=== PATIENT | female | born 1955 | race Caucasian/White ===

== ENCOUNTER 2016-12-02 17:32 | Emergency (ER) | payer BC, OTHER ==
[2016-12-02] MEDS ORDERED: Nitrostat 0.4 MG (ED) SL ONE ×2 (17:44→17:56)
[2016-12-02] MEDS ORDERED: Zofran 4 MG/2 ML VIAL IV ONE (17:44)
[2016-12-02] MEDS ORDERED: BABY ASPIRIN 81 MG CHEW PO ONE (17:44)
--- NOTE | 2016-12-02 17:44 | ERPHSYRPT ---
- History of Present Illness Historian: patient, family () Exam Limitations: clinical condition Physician History: Patient took [id number] Azo for which he thought was urinary tract symptoms and possible infection and developed acute swelling of her tongue and chest pain with nausea and vomiting brought to ER at this time for such. Patient had previous history of allergic reaction to Pyridium but did not know if this was the same medicine which it turned out to be. No fever or chills. Has urinary frequency urgency and mild dysuria. No flank pain. No history of cardiac disease in the past.chest pain has resolved at this time. Timing/Duration: today Activities at Onset: other ( NOTED ABOVE) Quality: burning, cramping Location: substernal, other (to upper epigastric) Chest Pain Radiation: no radiation Severity of Pain-Max: severe Severity of Pain-Current: none Modifying Factors: Improves With: nothing Associated Symptoms: nausea, vomiting Prior Chest Pain/Cardiac Workup: no prior chest pain, no prior cardiac workup Nitro Today/Relief: no nitro taken today Aspirin Treatment Today: 81 mg x 4, provided by ED Allergies/Adverse Reactions: phenazopyridine Allergy (Intermediate, Verified 12/02/16 18:14) Sulfa (Sulfonamide Antibiotics) Allergy (Verified 12/02/16 18:14) - Review of Systems Constitutional: No Symptoms Eyes: No Symptoms Ears, Nose, & Throat: Other (tongue swelling/thickening as noted) Respiratory: No Symptoms Cardiac: No Symptoms Abdominal/Gastrointestinal: Nausea, Vomiting, Other (substernal esophageal pain to upper epigastric area) Genitourinary Symptoms: Frequency, Hesitancy, Urgency, No Incontinence Musculoskeletal: No Symptoms Skin: No Symptoms Neurological: No Symptoms Psychological: No Symptoms Endocrine: No Symptoms Hematologic/Lymphatic: No Symptoms Immunological/Allergic: No Symptoms All Other Systems: Reviewed and Negative - Past Medical History Pertinent Past Medical History: Yes Neurological History: No Pertinent History ENT History: No Pertinent History Cardiac History: No Pertinent History Respiratory History: No Pertinent History Endocrine Medical History: No Pertinent History Musculoskeletal History: No Pertinent History GI Medical History: No Pertinent History History: No Pertinent History Psycho-Social History: No Pertinent History Female Reproductive Disorders: No Pertinent History - Physical Exam General Appearance: severe distress, alert, anxiety Eye Exam: PERRL/EOMI Ears, Nose, Throat Exam: normal ENT inspection, TMs normal, pharynx normal, other (Very mild initial tongue swelling which resolved after menstruation medications.) Neck Exam: normal inspection Respiratory Exam: normal breath sounds, lungs clear, airway intact, No chest tenderness, No respiratory distress, No diminished breath sounds, No prolonged expirations Cardiovascular Exam: regular rate/rhythm, normal heart sounds, normal peripheral pulses Gastrointestinal/Abdomen Exam: soft, normal bowel sounds, tenderness (mild suprapubic), No distention, No mass, No guarding, No rebound, No hernia Pelvic Exam: not done Rectal Exam: deferred Back Exam: normal inspection, normal range of motion, No CVA tenderness, No vertebral tenderness, No decreased range of motion, No muscle spasm, No point tenderness Extremity Exam: normal inspection, normal range of motion Neurologic Exam: alert, oriented x 3, cooperative, package sealer II-XII nml as tested Skin Exam: normal color, warm, dry Lymphatic Exam: No adenopathy SpO2 Interpretation: normal SpO2: 96 Oxygen Delivery: Room Air - Course Nursing assessment & vital signs reviewed: Yes EKG Interpreted by Me: RATE (98), Sinus Rhythm, Left Hewitt Deviation, NORMAL INTERVALS, NORMAL QRS, Non-specific ST Changes (III,aVL,V1), Other (NO SIGNIFICANT CHANGES TO OLD ekg comparison on august 22, 2013) - Radiology Exams Chest X-ray Interpretation: Interpreted by me, Negative Ordered Tests: Medication Summary Discontinued Medications Generic Name Dose Route Start Last Admin Trade Name Marvin PRN Reason Stop Dose Admin Aspirin 324 mg 12/02/16 17:44 12/02/16 18:01 Baby Aspirin 81 Mg Chew PO 12/02/16 17:45 324 mg STAT ONE Administration Aspirin Confirm 12/02/16 17:55 Baby Aspirin 81 Mg Chew Administered 12/02/16 17:56 Dose 324 mg .ROUTE .STK-MED ONE Dexamethasone Sodium Phosphate 10 mg 12/02/16 18:14 12/02/16 18:25 Decadron 10mg Inj. IV 12/02/16 18:15 10 mg STAT ONE Administration Dexamethasone Sodium Phosphate Confirm 12/02/16 18:20 Decadron 10mg Inj. Administered 12/02/16 18:21 Dose 10 mg .ROUTE .STK-MED ONE Diphenhydramine HCl 25 mg 12/02/16 18:14 12/02/16 18:25 Benadryl 50 Mg/Ml IV 12/02/16 18:15 25 mg STAT ONE Administration Diphenhydramine HCl Confirm 12/02/16 18:20 Benadryl 50 Mg/Ml Administered 12/02/16 18:21 Dose 50 mg .ROUTE .STK-MED ONE Famotidine 20 mg 12/02/16 18:15 12/02/16 18:25 Pepcid 20 Mg Vial IV 12/02/16 18:16 20 mg STAT ONE Administration Famotidine Confirm 12/02/16 18:20 Pepcid 20 Mg Vial Administered 12/02/16 18:21 Dose 20 mg IV .STK-MED ONE Sodium Chloride 1,000 mls @ 100 mls/hr 12/02/16 17:45 12/02/16 18:01 Sodium Chloride 0.9% 1000 Ml IV 01/01/17 17:44 100 mls/hr .Q10H FLIP Administration Sodium Chloride Confirm 12/02/16 17:56 Sodium Chloride 0.9% 1000 Ml Administered 12/02/16 17:57 Dose 1,000 mls @ ud .ROUTE .STK-MED ONE Ceftriaxone Sodium/Dextrose 50 mls @ 100 mls/hr 12/02/16 20:13 12/02/16 20:24 Rocephin 1 Gm-D5w 50 Ml Bag IV 12/02/16 20:42 100 mls/hr STAT ONE Administration Ceftriaxone Sodium/Dextrose Confirm 12/02/16 20:21 Rocephin 1 Gm-D5w 50 Ml Bag Administered 12/02/16 20:22 Dose 50 mls @ ud IV .STK-MED ONE Nitroglycerin 0.4 mg 12/02/16 17:44 12/02/16 18:01 Nitrostat 0.4 Mg (Ed) SL 12/02/16 17:45 0.4 mg STAT ONE Administration Nitroglycerin Confirm 12/02/16 17:56 Nitrostat 0.4 Mg (Ed) Administered 12/02/16 17:57 Dose 0.4 mg SL .STK-MED ONE Ondansetron HCl 4 mg 12/02/16 17:44 12/02/16 18:01 Zofran 4 Mg/2 Ml Vial IV 02/08/17 17:45 4 mg STAT ONE Administration Ondansetron HCl Confirm 12/02/16 17:55 Zofran 4 Mg/2 Ml Vial Administered 12/02/16 17:56 Dose 4 mg .ROUTE .STK-MED ONE Lab/Rad Data: Laboratory Result Diagrams 12/02/16 17:45 12/02/16 17:45 Laboratory Results 12/02/16 12/02/16 12/02/16 Range/Units 19:25 17:45 17:45 WBC (4.0-10.5) K/mm3 RBC (4.1-5.4) M/mm3 Hgb (12.0-16.0) gm/dl Hct (35-47) % MCV (78-100) fl MCH (26-32) pg MCHC (32-36) g/dl RDW (11.5-14.0) % Plt Count (150-450) K/mm3 MPV (6-9.5) fl Gran % (36.0-66.0) % Lymphocytes % (24.0-44.0) % Monocytes % (0.0-12.0) % Eosinophils % (0.00-5.0) % Basophils % (0.0-0.4) % Basophils # (0-0.4) Sodium 143 (136-145) mEq/L Potassium 3.7 (3.5-5.1) mEq/L Chloride 106 (98-107) mEq/L Carbon Dioxide 21.8 (21-32) mEq/L Anion Gap 19.1 H (5-15) MEQ/L BUN 16 (9-20) mg/dL Creatinine 0.96 (0.55-1.30) mg/dl Estimated GFR > 60 ML/MIN Glucose 134 H (70-110) MG/DL Calcium 9.1 (8.5-10.1) mg/dL Total Bilirubin 0.2 (0.2-1.0) mg/dL AST 28 (15-37) U/L ALT 28 (12-78) U/L Alkaline Phosphatase 87 (46-116) U/L Troponin I < 0.017 (0.000-0.056) ng/ml Serum Total Protein 7.6 (6.4-8.2) gm/dL Albumin 3.9 (3.4-5.0) g/dL Ur Collection Type CATH Urine Color RED (YELLOW) Urine Appearance SLIGHTLY CLOUDY (CLEAR) Urine pH 5.0 (5-6) Ur Specific [place] 1.015 (1.005-1.025) Urine Protein >=300 (Negative) Urine Glucose (UA) 250 (NEGATIVE) mg/dL Urine Ketones SMALL-15 (NEGATIVE) Urine Nitrite POSITIVE (NEGATIVE) Urine Bilirubin MODERATE (NEGATIVE) Urine Urobilinogen 4 (0-1) mg/dL Urine WBC (Auto) LARGE (NEGATIVE) Urine RBC (Auto) TRACE HEMOLYZED (0-5) Cas/ul Urine Microscopic RBC 0-2 (0-2) /HPF Urine Microscopic WBC 25-50 (0-5) /HPF Ur Epithelial Cells MODERATE (FEW) /HPF Urine Bacteria FEW (NEGATIVE) /HPF Urine Mucus MANY (NEGATIVE) /HPF Specimen Received 12/02/16:2150 12/02/16 Range/Units 17:45 WBC 8.2 (4.0-10.5) K/mm3 RBC 4.19 (4.1-5.4) M/mm3 Hgb 12.3 (12.0-16.0) gm/dl Hct 37.1 (35-47) % MCV 88.5 (78-100) fl MCH 29.4 (26-32) pg MCHC 33.2 (32-36) g/dl RDW 13.3 (11.5-14.0) % Plt Count 332 (150-450) K/mm3 MPV 9.5 (6-9.5) fl Gran % 34.5 L (36.0-66.0) % Lymphocytes % 54.6 H (24.0-44.0) % Monocytes % 8.6 (0.0-12.0) % Eosinophils % 1.8 (0.00-5.0) % Basophils % 0.5 (0.0-0.4) % Basophils # 0.04 (0-0.4) Sodium (136-145) mEq/L Potassium (3.5-5.1) mEq/L Chloride (98-107) mEq/L Carbon Dioxide (21-32) mEq/L Anion Gap (5-15) MEQ/L BUN (9-20) mg/dL Creatinine (0.55-1.30) mg/dl Estimated GFR ML/MIN Glucose (70-110) MG/DL Calcium (8.5-10.1) mg/dL Total Bilirubin (0.2-1.0) mg/dL AST (15-37) U/L ALT (12-78) U/L Alkaline Phosphatase (46-116) U/L Troponin I (0.000-0.056) ng/ml Serum Total Protein (6.4-8.2) gm/dL Albumin (3.4-5.0) g/dL Ur Collection Type Urine Color (YELLOW) Urine Appearance (CLEAR) Urine pH (5-6) Ur Specific [place] (1.005-1.025) Urine Protein (Negative) Urine Glucose (UA) (NEGATIVE) mg/dL Urine Ketones (NEGATIVE) Urine Nitrite (NEGATIVE) Urine Bilirubin (NEGATIVE) Urine Urobilinogen (0-1) mg/dL Urine WBC (Auto) (NEGATIVE) Urine RBC (Auto) (0-5) Cas/ul Urine Microscopic RBC (0-2) /HPF Urine Microscopic WBC (0-5) /HPF Ur Epithelial Cells (FEW) /HPF Urine Bacteria (NEGATIVE) /HPF Urine Mucus (NEGATIVE) /HPF Specimen Received - Progress Progress: improved Air Movement: good Progress Note: 12/02/16 20:23Patient markedly improved with regard to symptoms of allergic reaction to Pyridium. Urinalysis was significant findings of UTI sent for culture. Patient given 1 g Rocephin IV. See discharge diagnosis and instructions. Emphasized importance of follow-up and criteria for return to ER. Blood Culture(s) Obtained: No Antibiotics given: No Counseled pt/family regarding: lab results, diagnosis, rad results - Departure Time of Disposition: 20:35 Departure Disposition: Home Clinical Impression: Allergic reaction caused by a drug Qualifiers: Encounter type: initial encounter Qualified Code(s): T78.40XA - Allergy, unspecified, initial encounter UTI (urinary tract infection) Qualifiers: Urinary tract infection type: acute cystitis Hematuria presence: without hematuria Qualified Code(s): N30.00 - Acute cystitis without hematuria Condition: Fair Critical Care Time: No Referrals: YANELIS JARRETT [Primary Care Provider] - Instructions: Urinary Tract Infection (UTI), Adverse Drug Reaction -- Allergic Additional Instructions: Remember that you are allergic to Pyridium which is also called phenazopyridine. Start antibiotic oral prescription tomorrow and pick for 10 full days. Force clear oral fluids and cranberry juice recheck with medical provider in 11 days to make sure urine infection is totally eradicated. Return to ER/or see medical provider for fever chills nausea vomiting breathing difficulty rashes severe pain or a significant concern for issues. Prescriptions: Cephalexin Mh 500 mg [Keflex 500 mg] 500 mg PO TID #30 capsule
[2016-12-02] MEDS ORDERED: Sodium Chloride 0.9% 1000 ML 1,000 ML IV SCH (17:45)
[2016-12-02] MEDS ORDERED: BABY ASPIRIN 81 MG CHEW ONE (17:55)
[2016-12-02] MEDS ORDERED: Zofran 4 MG/2 ML VIAL ONE (17:55)
[2016-12-02] MEDS ORDERED: Sodium Chloride 0.9% 1000 ML 1,000 ML ONE (17:56)
[2016-12-02 18:04] LABS: BASOPHIL % 0.5 % (0.0-0.4); Eosinophil % 1.8 % (0.00-5.0); Granulocytes % 34.5 % (36.0-66.0); Lymphocytes % 54.6 % (24.0-44.0); Mean Cell Volume 88.5 fl (78-100); Mean Corpuscular Hemoglobin 29.4 pg (26-32); Mean Platelet Volume 9.5 fl (6-9.5); Monocytes % 8.6 % (0.0-12.0); Platelet Count 332 K/mm3 (150-450); Red Blood Count 4.19 M/mm3 (4.1-5.4); Red Cell Distribution Width 13.3 % (11.5-14.0); White Blood Count 8.2 K/mm3 (4.0-10.5)
[2016-12-02] MEDS ORDERED: BENADRYL 50 MG/ML IV ONE (18:14)
[2016-12-02] MEDS ORDERED: DECADRON 10MG INJ. IV ONE (18:14)
[2016-12-02] MEDS ORDERED: Pepcid 20 MG VIAL IV ONE ×2 (18:15→18:20)
[2016-12-02] MEDS ORDERED: BENADRYL 50 MG/ML ONE (18:20)
[2016-12-02] MEDS ORDERED: DECADRON 10MG INJ. ONE (18:20)
[2016-12-02 18:27] LABS: ALBUMIN 3.9 g/dL (3.4-5.0); ALKALINE PHOSPHATASE 87 U/L (46-116); ANION GAP 19.1 MEQ/L (5-15); BILIRUBIN,TOTAL 0.2 mg/dL (0.2-1.0); BLOOD UREA NITROGEN 16 mg/dL (9-20); CHLORIDE 106 mEq/L (98-107); Carbon Dioxide 21.8 mEq/L (21-32); Glucose 134 MG/DL (70-110); Potassium 3.7 mEq/L (3.5-5.1); SGOT/AST 28 U/L (15-37); SGPT/ALT 28 U/L (12-78); SODIUM 143 mEq/L (136-145); Total Protein 7.6 gm/dL (6.4-8.2)
[2016-12-02 20:07] LABS: Collection Type CATH
[2016-12-02 20:08] LABS: Bacteria FEW /HPF (NEGATIVE); COMPLETE URINE MICROSCOPIC? YES; Epithelial Cells MODERATE /HPF (FEW); Mucus MANY /HPF (NEGATIVE); WBC 25-50 /HPF (0-5)
[2016-12-02] MEDS ORDERED: ROCEPHIN 1 Gm-D5w 50 ml Bag** 50 ML IV ONE ×2 (20:13→20:21)
[2016-12-02 20:37] VITALS: BP 130/74; PULSE 90
--- NOTE | 2016-12-03 08:34 | XRAY ---
Indication: Chest pain. Comparison: January 28, 2015 Portable chest less inflated today and clear. Heart and mediastinal structures within normal limits. Bony thorax intact again with minimal osteopenia and degenerative changes. Impression: Stable nonacute chest.
[2016-12-06 16:53] VITALS: O2SAT 96
== END 2016-12-02 21:09 | disposition home or self-care (01) ==
LOC: ED 17:32
DX: T78.40XA Allergy, unspecified, initial encounter (principal); N30.00 Acute cystitis without hematuria; R11.2 Nausea with vomiting, unspecified; R35.0 Frequency of micturition
CPT/HCPCS: 36000; 36415; 51701; 71010; 80053; 81000; 84484; 85025; 87086; 93005; 93041; 96360; 96361; 96365; 96374; 96375; 99284; J0696; J1100; J1200; J2405

== ENCOUNTER 2018-01-31 12:50 | Emergency (ER) | payer OTHER ==
[2018-01-31] MEDS ORDERED: Lactated Ringers 1,000 ML IV ONE ×2 (13:00→13:17)
--- NOTE | 2018-01-31 13:09 | ERPHSYRPT ---
- History of Present Illness Time Seen by Provider: 01/31/18 12:51 Source: patient Patient Subjective Stated Complaint: heart palpitations Triage Nursing Assessment: pt to er c/o heart palpitations, alert and oriented x3, able to answer questions appropriately, no noted distress, Physician History: CC: lightheaded Hx: 63 y/o patient with appt to see Dr Lainez this week on . She has remote hx of breast cancer. She has no hx of other chronic health problems, no dm, no heart disease, no thryoid disease. She has had recent spells in which she is usually driving and feels lightheaded. She stops and gets a drink or snack and feels better. Today she had a spell and she felt like her heart was fluttering some. No syncope but feels like might pass out during the spells. Hx of GERD but no chest pain or real exertional symptoms. Limited amounts of caffeine. Works for [employer]. Severity: mild Allergies/Adverse Reactions: phenazopyridine Allergy (Intermediate, Verified 01/31/18 12:57) Sulfa (Sulfonamide Antibiotics) Allergy (Verified 01/31/18 12:57) Hx Tetanus, Diphtheria Vaccination/Date Given: No Hx Influenza Vaccination/Date Given: No Hx Pneumococcal Vaccination/Date Given: No - Review of Systems Constitutional: No Fever, No Chills, No Malaise Eyes: No Symptoms Ears, Nose, & Throat: No Symptoms Respiratory: No Cough, No Dyspnea Cardiac: Palpitations, No Chest Pain, No Syncope Abdominal/Gastrointestinal: No Abdominal Pain, No Nausea, No Vomiting Genitourinary Symptoms: No Dysuria Skin: No Rash Neurological: No Focal Weakness, No Headache, No Parasthesia All Other Systems: Reviewed and Negative - Past Medical History Pertinent Past Medical History: No Neurological History: No Pertinent History ENT History: No Pertinent History Cardiac History: No Pertinent History Respiratory History: No Pertinent History Endocrine Medical History: No Pertinent History Musculoskeletal History: No Pertinent History GI Medical History: No Pertinent History History: No Pertinent History Psycho-Social History: No Pertinent History Female Reproductive Disorders: Breast Cancer Other Medical History: breast cancer with chemo and masectomy with reconstruction in 2004 - Past Surgical History Past Surgical History: Yes Neuro Surgical History: No Pertinent History Cardiac: No Pertinent History Respiratory: No Pertinent History Gastrointestinal: No Pertinent History Genitourinary: No Pertinent History Musculoskeletal: No Pertinent History Female Surgical History: Mastectomy - Social History Smoking Status: Never smoker Exposure to second hand smoke: No Drug Use: none Patient Lives Alone: No - Female History Hx Now: No - Nursing Vital Signs Nursing Vital Signs: Initial Vital Signs Pulse Rate 93 H 01/31/18 12:51 Respiratory Rate 20 01/31/18 12:51 Blood Pressure 159/81 01/31/18 12:51 O2 Sat by Pulse Oximetry 99 01/31/18 12:51 Pain Scale Pain Intensity 0 - Physical Exam General Appearance: alert Eye Exam: PERRL/EOMI Ears, Nose, Throat Exam: normal ENT inspection, moist mucous membranes Neck Exam: normal inspection, non-tender, supple Respiratory Exam: lungs clear Cardiovascular Exam: regular rate/rhythm, No murmur, No friction rub, No gallop Gastrointestinal/Abdomen Exam: soft, No tenderness, No distention Extremity Exam: normal inspection, normal range of motion, No calf tenderness, No pedal edema Neurologic Exam: alert, oriented x 3, cooperative, sensation nml, No motor deficits Skin Exam: warm, dry, No rash SpO2 Interpretation: normal SpO2: 99 Oxygen Delivery: Room Air - Course Nursing assessment & vital signs reviewed: Yes EKG Interpreted by Me: RATE (95), Sinus Rhythm, NORMAL AXIS, NORMAL INTERVALS ( QTc 95), NORMAL QRS, Non-specific ST Changes (similar to prior tracing last year ) - Radiology Exams cxr X-ray Interpretation: Teleradiologist Report (nonacute) Ordered Tests: Active Orders 24 hr Category Date Time Status Retail Assistant Manager STAT Care 01/31/18 13:00 Active Clean Catch Urine Specimen STAT Care 01/31/18 13:00 Active EKG-ER Only STAT Care 01/31/18 13:00 Active IV Insertion STAT Care 01/31/18 13:00 Active Orthostatic Vital Signs STAT Care 01/31/18 13:02 Active Pulse Oximetry (ED) STAT Care 01/31/18 13:00 Active CHEST 2 VIEWS (PA AND LAT) Stat Exams 01/31/18 13:00 Completed CBC W DIFF Stat Lab 01/31/18 13:26 Completed CMP Routine Lab 01/31/18 13:26 Completed TROPONIN Q3H Lab 01/31/18 13:26 Completed TROPONIN Q3H Lab 01/31/18 16:00 Ordered TROPONIN Q3H Lab 01/31/18 19:00 Ordered TROPONIN Q3H Lab 01/31/18 22:00 Ordered TROPONIN Q3H Lab 02/01/18 01:00 Ordered TSH, 3RD Generation Routine Lab 01/31/18 13:26 Completed UA W/ MICROSCOPIC Stat Lab 01/31/18 13:26 Completed Holter Monitor ONCE RT 01/31/18 14:57 Active Medication Summary Discontinued Medications Generic Name Dose Route Start Last Admin Trade Name Marvin PRN Reason Stop Dose Admin Lactated Ringer's 1,000 mls @ 999 mls/hr 01/31/18 13:00 01/31/18 13:26 Lactated Ringers IV 01/31/18 14:00 999 mls/hr .Q1H1M ONE Administration Lactated Ringer's Confirm 01/31/18 13:17 Lactated Ringers Administered 01/31/18 13:18 Dose 1,000 mls @ ud IV .STK-MED ONE Lab/Rad Data: Laboratory Result Diagrams 01/31/18 13:26 01/31/18 13:26 Laboratory Results 01/31/18 01/31/18 01/31/18 Range/Units 13:26 13:26 13:26 WBC 6.2 (4.0-10.5) K/mm3 RBC 4.46 (4.1-5.4) M/mm3 Hgb 12.9 (12.0-16.0) gm/dl Hct 39.5 (35-47) % MCV 88.6 (78-100) fl MCH 28.9 (26-32) pg MCHC 32.7 (32-36) g/dl RDW 13.6 (11.5-14.0) % Plt Count 302 (150-450) K/mm3 MPV 9.9 H (6-9.5) fl Gran % 49.4 (36.0-66.0) % Eos # (Auto) 0.46 (0-0.5) Absolute Lymphs (auto) 2.02 (1.0-4.6) Absolute Monos (auto) 0.58 (0.0-1.3) Lymphocytes % 32.5 (24.0-44.0) % Monocytes % 9.3 (0.0-12.0) % Eosinophils % 7.4 H (0.00-5.0) % Basophils % 1.4 (0.0-0.4) % Absolute Granulocytes 3.07 (1.4-6.9) Basophils # 0.09 (0-0.4) Sodium 141 (137-145) mmol/L Potassium 3.5 (3.5-5.1) mmol/L Chloride 103 (98-107) mmol/L Carbon Dioxide 26 (22-30) mmol/L Anion Gap 16.2 H (5-15) MEQ/L BUN 13 (7-17) mg/dL Creatinine 0.70 (0.52-1.04) mg/dL Estimated GFR > 60.0 ML/MIN Glucose 153 H (74-106) mg/dL Calcium 9.9 (8.4-10.2) mg/dL Total Bilirubin 0.30 (0.2-1.3) mg/dL AST 32 (14-36) U/L ALT 28 (0-35) U/L Alkaline Phosphatase 97 (38-126) U/L Troponin I < 0.012 (0.000-0.034) ng/mL Serum Total Protein 8.1 (6.3-8.2) g/dL Albumin 4.6 (3.5-5.0) g/dL TSH 3rd Generation 4.380 (0.47-4.68) mIU/L Ur Collection Type VOID Urine Color YELLOW (YELLOW) Urine Appearance CLEAR (CLEAR) Urine pH 6.0 (5-6) Ur Specific [place] 1.005 (1.005-1.025) Urine Protein NEGATIVE (Negative) Urine Ketones NEGATIVE (NEGATIVE) Urine Blood NEGATIVE (0-5) Cas/ul Urine Nitrite NEGATIVE (NEGATIVE) Urine Bilirubin NEGATIVE (NEGATIVE) Urine Urobilinogen NORMAL (0-1) mg/dL Ur Leukocyte Esterase TRACE (NEGATIVE) Urine Microscopic WBC 0-2 (0-5) /HPF Ur Epithelial Cells FEW (FEW) /HPF Urine Bacteria RARE (NEGATIVE) /HPF Urine Culture Reflexed NO (NO) Urine Glucose NEGATIVE (NEGATIVE) mg/dL Specimen Received 01/31/18 1330 - Progress Progress Note: 01/31/18 14:50 Orthostatic vitals okay. She has no symptoms at present. She has appt with Dr Lainez later this week. May need echo and holter. 01/31/18 14:[address] Lainez. Will get holter and have office follow up. Counseled pt/family regarding: lab results, diagnosis, need for follow-up - Departure Time of Disposition: 14:58 Departure Disposition: Home Clinical Impression: Pre-syncope, Palpitations Condition: Stable Critical Care Time: No Referrals: CASSIA LAINEZ [Primary Care Provider] - Instructions: Palpitations (DC), Near Fainting (DC) Additional Instructions: See Dr Lainez this week as scheduled. Return for problems or concerns. Holter monitor. No driving today and stay with family.
--- NOTE | 2018-01-31 13:32 | XRAY ---
Indication: Tachycardia. Palpitations. Comparison: December 02, 2016. PA/lateral chest hyperinflated and clear. Heart is not enlarged. Vascularity normal. Bony thorax intact again with mild osteopenia and degenerative changes. Impression: Nonacute hyperinflated chest with chronic features.
[2018-01-31 13:34] LABS: BASOPHIL % 1.4 % (0.0-0.4); Basophil (Absolute #) 0.09 (0-0.4); Eosinophil % 7.4 % (0.00-5.0); Eosinophil (Absolute #) 0.46 (0-0.5); Granulocyte Absolute (ANC) 3.07 (1.4-6.9); Granulocytes % 49.4 % (36.0-66.0); Hematocrit 39.5 % (35-47); Hemoglobin 12.9 gm/dl (12.0-16.0); Lymphocyte (Absolute #) 2.02 (1.0-4.6); Lymphocytes % 32.5 % (24.0-44.0); Mean Cell Volume 88.6 fl (78-100); Mean Corpuscular Hemoglobin 28.9 pg (26-32); Mean Corpuscular Hgb Concent. 32.7 g/dl (32-36); Mean Platelet Volume 9.9 fl (6-9.5); Monocyte (Absolute #) 0.58 (0.0-1.3); Monocytes % 9.3 % (0.0-12.0); Platelet Count 302 K/mm3 (150-450); Red Blood Count 4.46 M/mm3 (4.1-5.4); Red Cell Distribution Width 13.6 % (11.5-14.0); White Blood Count 6.2 K/mm3 (4.0-10.5)
[2018-01-31 13:57] LABS: ALBUMIN 4.6 g/dL (3.5-5.0); ALKALINE PHOSPHATASE 97 U/L (38-126); ANION GAP 16.2 MEQ/L (5-15); BLOOD UREA NITROGEN 13 mg/dL (7-17); CHLORIDE 103 mmol/L (98-107); Calcium 9.9 mg/dL (8.4-10.2); Carbon Dioxide 26 mmol/L (22-30); Glucose 153 mg/dL (74-106); Potassium 3.5 mmol/L (3.5-5.1); SGOT/AST 32 U/L (14-36); SGPT/ALT 28 U/L (0-35); SODIUM 141 mmol/L (137-145); Total Protein 8.1 g/dL (6.3-8.2)
[2018-01-31 14:02] LABS: Appearance CLEAR (CLEAR); Bilirubin NEGATIVE (NEGATIVE); Blood NEGATIVE Ery/ul (0-5); Glucose NEGATIVE (NEGATIVE); Ketones NEGATIVE (NEGATIVE); Leukocyte Esterase TRACE (NEGATIVE); Nitrite NEGATIVE (NEGATIVE); Protein,Urine Dip NEGATIVE (Negative); Specific Gravity 1.005 (1.005-1.025); Urobilinogen NORMAL mg/dL (0-1)
[2018-01-31 14:03] LABS: Bacteria RARE /HPF (NEGATIVE); Epithelial Cells FEW /HPF (FEW); WBC 0-2 /HPF (0-5)
[2018-01-31 14:30] LABS: TROPONIN < 0.012 ng/mL (0.000-0.034)
[2018-01-31 15:03] VITALS: BP 148/74; PULSE 74; O2SAT 98
== END 2018-01-31 15:45 | disposition home or self-care (01) ==
LOC: ED 12:50
DX: R55 Syncope and collapse (principal); R42 Dizziness and giddiness; R00.2 Palpitations; Z85.3 Personal history of malignant neoplasm of breast
CPT/HCPCS: 36000; 36415; 71046; 80053; 81000; 84443; 84484; 85025; 93005; 93041; 96360; 99283; 99284

== ENCOUNTER 2019-05-07 11:24 | Emergency (ER) | payer MEDICAID, MEDICARE, OTHER ==
[2019-05-07] MEDS ORDERED: Protonix 40MG Tablet PO ONE (11:52)
[2019-05-07] MEDS ORDERED: Pepcid 20 MG VIAL IV ONE ×3 (11:52→12:20)
[2019-05-07] MEDS ORDERED: Sodium Chloride 0.9% 1000 ML 1,000 ML IV STA (11:52)
[2019-05-07] MEDS ORDERED: GI COCKTAIL 45 ML (Maalox/Lidocaine) PO ONE (11:52)
[2019-05-07] MEDS ORDERED: MAALOX ES 30 ML UNIT DOSE ONE (11:53)
[2019-05-07] MEDS ORDERED: XYLOCAINE HCl Viscous ONE (11:53)
[2019-05-07] MEDS ORDERED: Zofran 4 MG/2 ML VIAL IV ONE (11:55)
[2019-05-07 12:02] LABS: BASOPHIL % 1.2 % (0.0-0.4); Basophil (Absolute #) 0.07 (0-0.4); Eosinophil % 5.7 % (0.00-5.0); Eosinophil (Absolute #) 0.34 (0-0.5); Granulocyte Absolute (ANC) 2.72 (1.4-6.9); Granulocytes % 45.2 % (36.0-66.0); Hematocrit 39.5 % (35-47); Hemoglobin 13.1 gm/dl (12.0-16.0); Lymphocyte (Absolute #) 2.15 (1.0-4.6); Lymphocytes % 35.8 % (24.0-44.0); Mean Cell Volume 90.4 fl (78-100); Mean Corpuscular Hgb Concent. 33.2 g/dl (32-36); Mean Platelet Volume 9.9 fl (6-9.5); Monocyte (Absolute #) 0.73 (0.0-1.3); Monocytes % 12.1 % (0.0-12.0); Platelet Count 276 K/mm3 (150-450); Red Blood Count 4.37 M/mm3 (4.1-5.4); Red Cell Distribution Width 13.4 % (11.5-14.0)
[2019-05-07] MEDS ORDERED: Sodium Chloride 0.9% 1000 ML 1,000 ML ONE (12:13)
[2019-05-07] MEDS ORDERED: Protonix 40MG Tablet ONE (12:13)
[2019-05-07] MEDS ORDERED: Zofran 4 MG/2 ML VIAL ONE (12:13)
[2019-05-07 12:14] LABS: ALBUMIN 4.2 g/dL (3.5-5.0); ALKALINE PHOSPHATASE 82 U/L (38-126); ANION GAP 10.1 MEQ/L (5-15); BLOOD UREA NITROGEN 15 mg/dL (7-17); CHLORIDE 108 mmol/L (98-107); Calcium 9.6 mg/dL (8.4-10.2); Carbon Dioxide 27 mmol/L (22-30); Creatinine 1 0.63 mg/dL (0.52-1.04); Glucose 92 mg/dL (74-106); Potassium 4.4 mmol/L (3.5-5.1); SGOT/AST 37 U/L (14-36); SGPT/ALT 35 U/L (0-35); SODIUM 141 mmol/L (137-145); Total Protein 7.6 g/dL (6.3-8.2)
[2019-05-07 12:24] LABS: Appearance CLEAR (CLEAR); Bilirubin NEGATIVE (NEGATIVE); Blood NEGATIVE Ery/ul (0-5); Glucose NEGATIVE (NEGATIVE); Ketones NEGATIVE (NEGATIVE); Leukocyte Esterase NEGATIVE (NEGATIVE); Mucus SLIGHT /HPF (NEGATIVE); Nitrite NEGATIVE (NEGATIVE); Protein,Urine Dip NEGATIVE (Negative); Urobilinogen NEGATIVE mg/dL (0-1); WBC 0-2 /HPF (0-5)
[2019-05-07 15:15] VITALS: O2SAT 96
--- NOTE | 2019-05-07 15:55 | ERPHSYRPT ---
- History of Present Illness Historian: patient Exam Limitations: no limitations Patient Subjective Stated Complaint: pt reports upper abdominal/epigastric pain and nausea that woke her from sleep this morning. pt reports it is a sharp and gnawing pain. states it is intermittent in nature. pt denies any vomiting or diarrhea at this time. Triage Nursing Assessment: pt is aox3, pupils perrl, afebrile, resps easy and non labored, radial pulses strong and equal, cap refill > 3 seconds, pt abd soft tender to the upper left quad, bowel sounds present and normoactive x 4, pt skin pink warm dry. Physician History: Pt is a 64 y/o female that presented to the ER with abdominal pain that is epigastric. Pt has h/o GERD, and she is taking ITC meds, periodically PRN. Pt still has her gall bladder, and appendix. Pt denies F/C/S. No SOB or cough. No chest pain or palpitations. No N/V/D. Timing/Duration: today Activities at Onset: none Quality: sharpness, throbbing Abdominal Pain Onset Location: epigastric Pain Radiation: epigastric, back Severity of Pain-Max: moderate Severity of Pain-Current: mild Modifying Factors: Improves With: antacids, eating Associated Symptoms: denies symptoms Previous symptoms: no prior history Allergies/Adverse Reactions: phenazopyridine Allergy (Intermediate, Verified 05/07/19 11:47) Sulfa (Sulfonamide Antibiotics) Allergy (Verified 05/07/19 11:47) Home Medications: Metoprolol Tartrate 25 mg [Lopressor 25MG Tab] 25 mg PO BID 05/07/19 [ History] Hx Tetanus, Diphtheria Vaccination/Date Given: Yes Hx Influenza Vaccination/Date Given: No Hx Pneumococcal Vaccination/Date Given: No Immunizations Up to Date: Yes - Review of Systems Constitutional: No Fever, No Chills Eyes: No Symptoms Ears, Nose, & Throat: No Symptoms Respiratory: No Cough, No Dyspnea Cardiac: No Chest Pain, No Edema, No Syncope Abdominal/Gastrointestinal: Abdominal Pain, Nausea Genitourinary Symptoms: No Dysuria Musculoskeletal: No Back Pain, No Neck Pain Neurological: No Dizziness, No Focal Weakness, No Sensory Changes - Past Medical History Pertinent Past Medical History: No Neurological History: No Pertinent History ENT History: No Pertinent History Cardiac History: No Pertinent History, Other Respiratory History: No Pertinent History Endocrine Medical History: No Pertinent History Musculoskeletal History: No Pertinent History GI Medical History: No Pertinent History History: No Pertinent History Psycho-Social History: No Pertinent History Female Reproductive Disorders: Breast Cancer Other Medical History: right breast cancer with chemo and masectomy with reconstruction in 2004. SVT - Past Surgical History Past Surgical History: Yes Neuro Surgical History: No Pertinent History Cardiac: No Pertinent History Respiratory: No Pertinent History Gastrointestinal: No Pertinent History Genitourinary: No Pertinent History Musculoskeletal: No Pertinent History Female Surgical History: Mastectomy Other Surgical History: bilat wrists with plates and screws. bilat breast reconstruction - Social History Smoking Status: Never smoker Exposure to second hand smoke: No Drug Use: none Patient Lives Alone: No - Female History Hx Now: No - Nursing Vital Signs Nursing Vital Signs: Initial Vital Signs Temperature 98 F 05/07/19 11:30 Pulse Rate 77 05/07/19 11:30 Respiratory Rate 20 05/07/19 11:30 Blood Pressure 162/83 05/07/19 11:30 O2 Sat by Pulse Oximetry 97 05/07/19 11:30 Pain Scale Pain Intensity 6 - Physical Exam General Appearance: no apparent distress, alert Eye Exam: PERRL/EOMI, eyes nml inspection Ears, Nose, Throat Exam: normal ENT inspection, pharynx normal, moist mucous membranes Neck Exam: normal inspection, non-tender, supple, full range of motion Respiratory Exam: normal breath sounds, lungs clear, No respiratory distress Cardiovascular Exam: regular rate/rhythm, normal heart sounds Gastrointestinal/Abdomen Exam: soft, tenderness (epigastric) Extremity Exam: normal inspection, normal range of motion, pelvis stable Neurologic Exam: alert, oriented x 3, cooperative, normal mood/affect, nml cerebellar function, sensation nml, No motor deficits SpO2: 96 - CT Exams Abdomen/Pelvis CT Interpretation: Tele-radiologist Report (mass vs prominent vessel posteriorly in the left base measuring 12x9mm. Decompresed sigmoid.) Ordered Tests: Active Orders 24 hr Category Date Time Status ABDOMEN AND PELVIS W CONTRAST [CT] Stat Exams 05/07/19 13:28 Taken CBC W DIFF Stat Lab 05/07/19 11:52 Completed CMP Stat Lab 05/07/19 11:52 Completed LIPASE Stat Lab 05/07/19 11:52 Completed UA W/RFX UR CULTURE Stat Lab 05/07/19 12:09 Completed Medication Summary Discontinued Medications Generic Name Dose Route Start Last Admin Trade Name Marvin PRN Reason Stop Dose Admin Al Hydrox/Mg Hydrox/Simethicone Confirm 05/07/19 11:53 Maalox Es 30 Ml Unit Dose Administered 05/07/19 11:54 Dose 30 ml .ROUTE .STK-MED ONE Famotidine 40 mg 05/07/19 11:52 05/07/19 12:19 Pepcid 20 Mg Vial IV 05/07/19 11:53 40 mg STAT ONE Administration Famotidine Confirm 05/07/19 12:13 Pepcid 20 Mg Vial Administered 05/07/19 12:14 Dose 20 mg IV .STK-MED ONE Famotidine Confirm 05/07/19 12:20 Pepcid 20 Mg Vial Administered 05/07/19 12:21 Dose 20 mg IV .STK-MED ONE Sodium Chloride 1,000 mls @ 999 mls/hr 05/07/19 11:52 05/07/19 14:47 Sodium Chloride 0.9% 1000 Ml IV 05/07/19 12:52 Infused .Q1H1M STA Infusion Sodium Chloride Confirm 05/07/19 12:13 Sodium Chloride 0.9% 1000 Ml Administered 05/07/19 12:14 Dose 1,000 mls @ ud .ROUTE .STK-MED ONE Lidocaine HCl Confirm 05/07/19 11:53 Xylocaine Hcl Viscous * Administered 05/07/19 11:54 Dose 15 ml .ROUTE .STK-MED ONE Magnesium Hydroxide 45 ml 05/07/19 11:52 05/07/19 12:09 Gi Cocktail 45 Ml (Maalox/Lidocaine) PO 05/07/19 11:53 45 ml STAT ONE Administration Ondansetron HCl 4 mg 05/07/19 11:55 05/07/19 12:19 Zofran 4 Mg/2 Ml Vial IV 05/07/19 11:56 4 mg STAT ONE Administration Ondansetron HCl Confirm 05/07/19 12:13 Zofran 4 Mg/2 Ml Vial Administered 05/07/19 12:14 Dose 4 mg .ROUTE .STK-MED ONE Pantoprazole Sodium 40 mg 05/07/19 11:52 05/07/19 12:24 Protonix 40mg Tablet PO 05/07/19 11:53 40 mg STAT ONE Administration Pantoprazole Sodium Confirm 05/07/19 12:13 Protonix 40mg Tablet Administered 05/07/19 12:14 Dose 40 mg .ROUTE .STK-MED ONE Lab/Rad Data: Laboratory Result Diagrams 05/07/19 11:52 05/07/19 11:52 Laboratory Results 05/07/19 05/07/19 05/07/19 Range/Units 12:09 11:52 11:52 WBC 6.0 (4.0-10.5) K/mm3 RBC 4.37 (4.1-5.4) M/mm3 Hgb 13.1 (12.0-16.0) gm/dl Hct 39.5 (35-47) % MCV 90.4 (78-100) fl MCH 30.0 (26-32) pg MCHC 33.2 (32-36) g/dl RDW 13.4 (11.5-14.0) % Plt Count 276 (150-450) K/mm3 MPV 9.9 H (6-9.5) fl Gran % 45.2 (36.0-66.0) % Eos # (Auto) 0.34 (0-0.5) Absolute Lymphs (auto) 2.15 (1.0-4.6) Absolute Monos (auto) 0.73 (0.0-1.3) Lymphocytes % 35.8 (24.0-44.0) % Monocytes % 12.1 H (0.0-12.0) % Eosinophils % 5.7 H (0.00-5.0) % Basophils % 1.2 (0.0-0.4) % Absolute Granulocytes 2.72 (1.4-6.9) Basophils # 0.07 (0-0.4) Sodium 141 (137-145) mmol/L Potassium 4.4 (3.5-5.1) mmol/L Chloride 108 H (98-107) mmol/L Carbon Dioxide 27 (22-30) mmol/L Anion Gap 10.1 (5-15) MEQ/L BUN 15 (7-17) mg/dL Creatinine 0.63 (0.52-1.04) mg/dL Estimated GFR > 60.0 ML/MIN Glucose 92 (74-106) mg/dL Calcium 9.6 (8.4-10.2) mg/dL Total Bilirubin 0.50 (0.2-1.3) mg/dL AST 37 H (14-36) U/L ALT 35 (0-35) U/L Alkaline Phosphatase 82 (38-126) U/L Serum Total Protein 7.6 (6.3-8.2) g/dL Albumin 4.2 (3.5-5.0) g/dL Lipase 111 (23-300) U/L Urine Color STRAW (YELLOW) Urine Appearance CLEAR (CLEAR) Urine pH 7.0 (5-6) Ur Specific Clubb 1.010 (1.005-1.025) Urine Protein NEGATIVE (Negative) Urine Ketones NEGATIVE (NEGATIVE) Urine Blood NEGATIVE (0-5) Cas/ul Urine Nitrite NEGATIVE (NEGATIVE) Urine Bilirubin NEGATIVE (NEGATIVE) Urine Urobilinogen NEGATIVE (0-1) mg/dL Ur Leukocyte Esterase NEGATIVE (NEGATIVE) Urine WBC (Auto) 0-2 (0-5) /HPF Urine RBC (Auto) NONE (0-2) /HPF U Epithel Cells (Auto) NONE (FEW) /HPF Urine Bacteria (Auto) NONE (NEGATIVE) /HPF Urine Mucus (Auto) SLIGHT (NEGATIVE) /HPF Urine Culture Reflexed NO (NO) Urine Glucose NEGATIVE (NEGATIVE) mg/dL - Progress Progress: improved Progress Note: 05/07/19 15:54 Pt was seen and examined. She did get GI cocktail, Protonix, Pepcid, and Zofran. She is improved. Pt might have PUD vs Severe GERD. Pt should f/u with her PCP and f/u with CT of abdomen and pelvis with contrast to f/u with the prominent vessel. She was advised to use OTC PPI and take it daily for 6 week, and see if there is improvement. EGD is a good f/u. Discussed with : Migel Will see patient in: office Counseled pt/family regarding: need for follow-up - Departure Departure Disposition: Home Clinical Impression: PUD (peptic ulcer disease) Condition: Stable Critical Care Time: No Referrals: CASSIA CHRISTIANSON [Primary Care Provider] - Additional Instructions: Take PPI daily for 6 weeks. F/U with PCP, and consider EGD. F/U with CT of abdomen and pelvis with contrast to f/u with prominent vessel.
[2019-05-07 16:06] VITALS: BP 125/67; PULSE 76
--- NOTE | 2019-05-07 21:06 | XRAY ---
Indication: Epigastric pain. Nausea. Multiple contiguous axial images obtained through the abdomen and pelvis using 80 cc Isovue-370 contrast only. Comparison: None Lung bases demonstrates partially visualized posterior left lower lobe 7 x 19 mm linear noncalcified density, possible subsegmental atelectasis/scarring. Mass not completely excluded. Mild bilateral dependent atelectasis. No infiltrate or effusion. Heart is not enlarged. Small hiatal hernia. Noncontrasted stomach and bowel loops appear nonobstructed. Normal appendix. Moderate fecal debris in the ascending and transverse colon. No free fluid/air. A few left parapelvic renal cysts, mild fatty liver, and tiny calcified splenic granulomas. Remaining liver, gallbladder, pancreas, spleen, adrenal glands, kidneys, ureters, bladder, and uterus appear unremarkable. Mild aortoiliac calcifications. No AAA or pathological retroperitoneal lymphadenopathy. Osseous structures intact with mild degenerative changes throughout the thoracolumbar spine, greatest in the lower lumbar spine. Impression: 1. No acute intra-abdominal/pelvic abnormalities. 2. Incidental mild fecal stasis, fatty liver, left renal parapelvic cysts, small hiatal hernia, and evidence for old granulomatous disease. 3. Partially visualized left lower lobe noncalcified linear density, subsegmental atelectasis/scarring versus mass. Dedicated CT chest with contrast may yield further information. Comment: Preliminary interpretation was made by [facility] [[email or web address]] who does not incidental hiatal hernia. CTDI 19.31
== END 2019-05-07 16:12 | disposition home or self-care (01) ==
LOC: ED 11:24
DX: K27.9 Peptic ulcer, site unspecified, unspecified as acute or chronic, without hemorrhage or perforation (principal)
CPT/HCPCS: 36000; 36415; 74177; 80053; 81001; 83690; 85025; 96374; 96375; 99284; J2405; A9270-GY

== ENCOUNTER 2022-05-22 00:55 | Emergency (ER) | payer MEDICARE ==
[2022-05-22] MEDS ORDERED: BABY ASPIRIN 81 MG CHEW PO ONE (01:04)
[2022-05-22] MEDS ORDERED: Ntg 0.2MG/Ml in D5W GLASS*** 250 ML IV PRN (01:10)
--- NOTE | 2022-05-22 01:16 | ERPHSYRPT ---
- History of Present Illness Time Seen by Provider: 05/22/22 01:10 Historian: patient Exam Limitations: no limitations Physician History: Patient is a 59-year-old female presents emergency department for evaluation of chest pain. Chest pain started approximately 7 PM after supper. Patient states pain started as a anteriorly that radiated towards her back. Pain is gotten progressively worse. Patient thought it was indigestion. She thought it was emanating from her esophagus. However symptoms did not improve. No associated nausea vomiting or diaphoresis. Symptoms are moderate in intensity. No specific worsening improving factors. Patient denies a history of the same. 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 Merly Hancock at [facility]. Patient voices no other complaints or concerns at this time. Portions of this note were created with voice recognition technology. There may be grammatical, spelling, punctuation or sound alike errors Timing/Duration: today Activities at Onset: none Quality: aching Location: substernal Chest Pain Radiation: back Severity of Pain-Max: moderate Severity of Pain-Current: mild Associated Symptoms: denies symptoms Prior Chest Pain/Cardiac Workup: no prior chest pain Nitro Today/Relief: no nitro taken today Aspirin Treatment Today: no aspirin today Allergies/Adverse Reactions: phenazopyridine Allergy (Intermediate, Verified 05/07/19 11:47) Sulfa (Sulfonamide Antibiotics) Allergy (Intermediate, Verified 05/22/22 00:57) Home Medications: Metoprolol Tartrate 25 mg [Lopressor 25MG Tab] 25 mg PO BID 05/07/19 [History] Pantoprazole 20 mg [Protonix 20MG Tablet] 20 mg PO DAILY 05/22/22 [History] Hx Tetanus, Diphtheria Vaccination/Date Given: Yes Hx Influenza Vaccination/Date Given: No Hx Pneumococcal Vaccination/Date Given: No - Review of Systems Constitutional: No Symptoms, No Fever, No Chills Eyes: No Symptoms Ears, Nose, & Throat: No Symptoms Respiratory: No Symptoms, No Cough, No Dyspnea Cardiac: No Symptoms, No Chest Pain, No Edema, No Syncope Abdominal/Gastrointestinal: No Symptoms, No Abdominal Pain, No Nausea, No Vomiting, No Diarrhea Genitourinary Symptoms: No Symptoms, No Dysuria Musculoskeletal: No Symptoms, No Back Pain, No Neck Pain Skin: No Symptoms, No Rash Neurological: No Symptoms, No Dizziness, No Focal Weakness, No Sensory Changes Psychological: No Symptoms Endocrine: No Symptoms Hematologic/Lymphatic: No Symptoms Immunological/Allergic: No Symptoms All Other Systems: Reviewed and Negative - Past Medical History Pertinent Past Medical History: No Neurological History: No Pertinent History ENT History: No Pertinent History Cardiac History: No Pertinent History, Other Respiratory History: No Pertinent History Endocrine Medical History: No Pertinent History Musculoskeletal History: No Pertinent History GI Medical History: No Pertinent History History: No Pertinent History Psycho-Social History: No Pertinent History Female Reproductive Disorders: Breast Cancer Other Medical History: right breast cancer with chemo and masectomy with reconstruction in 2004. SVT - Past Surgical History Past Surgical History: Yes Neuro Surgical History: No Pertinent History Cardiac: No Pertinent History Respiratory: No Pertinent History Gastrointestinal: No Pertinent History Genitourinary: No Pertinent History Musculoskeletal: No Pertinent History Female Surgical History: Mastectomy Other Surgical History: bilat wrists with plates and screws. bilat breast reconstruction - Social History Smoking Status: Never smoker Exposure to second hand smoke: No Drug Use: none Patient Lives Alone: No - Nursing Vital Signs Nursing Vital Signs: Initial Vital Signs Temperature 97.8 F 05/22/22 00:59 Pulse Rate 73 05/22/22 00:59 Respiratory Rate 17 05/22/22 00:59 O2 Sat by Pulse Oximetry 96 05/22/22 00:59 Pain Scale Pain Intensity 7 - Physical Exam General Appearance: no apparent distress, alert Eye Exam: PERRL/EOMI, eyes nml inspection Ears, Nose, Throat Exam: normal ENT inspection, TMs normal, pharynx normal, moist mucous membranes Neck Exam: normal inspection, non-tender, supple, full range of motion Respiratory Exam: normal breath sounds, lungs clear, airway intact, No respiratory distress Cardiovascular Exam: regular rate/rhythm, normal heart sounds, normal peripheral pulses Gastrointestinal/Abdomen Exam: soft, No tenderness, No mass Back Exam: normal inspection, No CVA tenderness, No vertebral tenderness Extremity Exam: normal inspection, normal range of motion Neurologic Exam: alert, oriented x 3, cooperative, normal mood/affect, sensation nml, No motor deficits Skin Exam: normal color, warm, dry SpO2 Interpretation: normal SpO2: 98 O2 Delivery: Room Air - Course Nursing assessment & vital signs reviewed: Yes EKG Interpreted by Me: RATE (59, acute ischemia possible posterior wall DE ST segment depression at 1 aVL 5 6 as well as precordial leads), Sinus Rhythm, NORMAL AXIS, NORMAL INTERVALS - Radiology Exams Chest X-ray Interpretation: Interpreted by me (Nonremarkable lung hawley. Heart and mediastinum are within normal limits. Osteopenia. Mild degenerative changes. Intact bony thorax.) Ordered Tests: Active Orders 24 hr Category Date Time Status Bead Maker STAT Care 05/22/22 01:05 Active EKG-ER Only STAT Care 05/22/22 01:04 Active IV Insertion STAT Care 05/22/22 01:04 Active Pulse Oximetry (ED) STAT Care 05/22/22 01:04 Active CHEST 1 VIEW (PORTABLE) Stat Exams 05/22/22 01:23 Taken CBC W DIFF Stat Lab 05/22/22 01:04 Ordered CMP Stat Lab 05/22/22 01:04 Ordered TROPONIN Q3H Lab 05/22/22 01:15 Ordered TROPONIN Q3H Lab 05/22/22 04:15 Ordered TROPONIN Q3H Lab 05/22/22 07:15 Ordered TROPONIN Q3H Lab 05/22/22 10:15 Ordered TROPONIN Q3H Lab 05/22/22 13:15 Ordered UA W/RFX CULTURE Stat Lab 05/22/22 Ordered Medication Summary Generic Name Dose Route Start Last Admin Trade Name Freq PRN Reason Stop Dose Admin Nitroglycerin/Dextrose 250 mls @ 1.5 mls/hr 05/22/22 01:10 Ntg 0.2mg/Ml In D5w Glass IV 06/21/22 01:09 .Q24H PRN CHEST PAIN Protocol 5 MCG/MIN Discontinued Medications Generic Name Dose Route Start Last Admin Trade Name Freq PRN Reason Stop Dose Admin Aspirin 324 mg 05/22/22 01:04 Aspirin 81 Mg Tab.Chew PO 05/22/22 01:05 STAT ONE Heparin Sodium (Beef Lung) Confirm 05/22/22 01:19 Heparin 5000 Unit/0.5 Ml Syringe Administered 05/22/22 01:20 Dose 5,000 unit .ROUTE .STK-MED ONE Heparin Sodium/Dextrose Confirm 05/22/22 01:19 Heparin 25,000 Units/D5w 250ml Premix Administered 05/22/22 01:20 Dose 25,000 units in 250 mls @ ud IV .STK-MED ONE - Progress Progress: improved Air Movement: good Progress Note: EKG reveals a posterior wall DE. Labs pending. Chest x-ray negative for acute pathology. We contacted [facility] per patient's request. Dr. Samaniego requested EKGs. EKGs faxed over. I spoke to Dr. Samaniego who reviewed the EKGs and activated Full Decator Operator. Dr. Hancock's group was notified. They will be performing the cath. Plan of care discussed with patient. She agrees to transfer to [facility] for further evaluation and treatment. Heparin infusion initiated. Aspirin administered. Nitro drip administered. Patient is much more comfortable at this time. Portions of this note were created with voice recognition technology. There may be grammatical, spelling, punctuation or sound alike errors 05/22/22 01:42 Blood Culture(s) Obtained: No Antibiotics given: No Counseled pt/family regarding: lab results, diagnosis, rad results - Departure Departure Disposition: Home Clinical Impression: Acute ischemic heart disease, STEMI (ST elevation myocardial infarction), Chest pain Condition: Stable Critical Care Time: No Referrals: CASSIA CHRISTIANSON [Primary Care Provider] - Follow up/PCP as directed
[2022-05-22] MEDS ORDERED: Heparin 25,000 units/D5W 250ML PREMIX 25,000 UNITS/250 ML BAG IV ONE (01:19)
[2022-05-22] MEDS ORDERED: Heparin 5000 UNITS/0.5 ML (HIGH RISK MED) ONE (01:19)
[2022-05-22 01:38] LABS: Absolute Neutrophil Ct (ANC) 3.45 x10^3/uL (1.4-6.9); Basophil (Absolute #) 0.08 x10^3/uL (0-0.4); Eosinophil % 4.5 % (0.00-5.0); Eosinophil (Absolute #) 0.33 x10^3/uL (0-0.5); Hematocrit 36.8 % (35-47); Hemoglobin 11.8 g/dL (12.0-16.0); Lymphocyte (Absolute #) 2.86 x10^3/uL (1.0-4.6); Lymphocytes % 38.8 % (24.0-44.0); Mean Cell Volume 91.5 fL (78-100); Mean Corpuscular Hemoglobin 29.4 pg (26-32); Mean Corpuscular Hgb Concent. 32.1 g/dL (32-36); Mean Platelet Volume 9.5 fL (7.5-11.0); Monocyte (Absolute #) 0.64 x10^3/uL (0.0-1.3); Monocytes % 8.7 % (0.0-12.0); Neutrophil % 46.8 % (36.0-66.0); Platelet Count 254 x10^3/uL (150-450); Red Blood Count 4.02 x10^6/uL (4.1-5.4); Red Cell Distribution Width 13.2 % (11.5-14.0); White Blood Count 7.4 x10^3/uL (4.0-10.5)
[2022-05-22 01:39] VITALS: BP 130/65; PULSE 74
[2022-05-22] MEDS ORDERED: Ntg 0.2MG/Ml in D5W GLASS*** 250 ML IV ONE (01:48)
[2022-05-22 01:52] VITALS: O2SAT 97
[2022-05-22 01:53] LABS: ALBUMIN 4.1 g/dL (3.5-5.0); ALKALINE PHOSPHATASE 90 U/L (38-126); ANION GAP 12.7 MEQ/L (5-15); BLOOD UREA NITROGEN 15 mg/dL (7-17); CHLORIDE 99 mmol/L (98-107); Calcium 9.9 mg/dL (8.4-10.2); Carbon Dioxide 27 mmol/L (22-30); Creatinine 1 0.91 mg/dL (0.52-1.04); EST GLOMERULAR FILTRATION RATE > 60.0 ML/MIN; Glucose 112 mg/dL (74-106); Potassium 4.4 mmol/L (3.5-5.1); SGOT/AST 30 U/L (14-36); SGPT/ALT 22 U/L (0-35); SODIUM 135 mmol/L (137-145); Total Protein 7.1 g/dL (6.3-8.2)
--- NOTE | 2022-05-22 08:49 | XRAY ---
Indication: Chest pain. Comparison: May 12, 2022 Portable chest remains hyperinflated and clear. Heart not enlarged again with a few left hilar calcified nodes. Bony thorax intact again with mild osteopenia and degenerative changes. Impression: Continued nonacute hyperinflated chest with chronic features.
== END 2022-05-22 02:03 | disposition short-term general hospital (02) ==
LOC: ED 00:55
DX: I21.29 ST elevation (STEMI) myocardial infarction involving other sites (principal); I24.9 Acute ischemic heart disease, unspecified; R07.9 Chest pain, unspecified
CPT/HCPCS: 36000; 36415; 71045; 80053; 84484; 85025; 93005; 93041; 94760; 99285; 99291; J1644; A9270-GY